=== PATIENT | male | born 1965 | race American Indian/Alaskan Native ===

== ENCOUNTER 2018-01-03 13:35 | Emergency (ER) | payer MEDICAID, OTHER ==
[~2018-01-03] VITALS: Ht 172.7 cm; Wt 95.0 kg
[~2018-01-03 13:35] MED LIST: AMLO2.5T2 PO; ASPI81TA35 PO; ATOR20TA PO; EXEN2VIA SQ; HYDR-569 PO; LANTUS SQ; METF500T7 PO; MYCO250C46 PO; NOVLG SQ; OMEP-84 PO; PRE5T PO; SULF500T59 PO; [UNRECOGNIZED DRUG - CODE] PO
[2018-01-03 13:42] VITALS: BP 147/93
== END 2018-01-03 14:13 | disposition home or self-care (01) ==
LOC: ER 13:36
DX: S80.12XA Contusion of left lower leg, initial encounter (principal); E78.00 Pure hypercholesterolemia, unspecified; E11.9 Type 2 diabetes mellitus without complications; Z94.0 Kidney transplant status; Z79.82 Long term (current) use of aspirin; Z79.4 Long term (current) use of insulin; Z79.899 Other long term (current) drug therapy; W22.8XXA Striking against or struck by other objects, initial encounter; Y93.39 Activity, other involving climbing, rappelling and jumping off; Y92.89 Other specified places as the place of occurrence of the external cause; Y99.9 Unspecified external cause status
CPT/HCPCS: 99281

== ENCOUNTER 2019-07-25 21:33 | Emergency (ER) | payer OTHER ==
[~2019-07-25] VITALS: Ht 172.7 cm; Wt 97.0 kg
[~2019-07-25 21:33] MED LIST changes: +HYDR-4383 PO; -HYDR-569 PO; +METF500T20 PO; -METF500T7 PO
[2019-07-25 22:30] LABS: BASOPHILS # (AUTO) 0.1 X10'3 (0-0.2); BASOPHILS % (AUTO) 1.1 % (0-1); EOSINOPHILS # (AUTO) 0.2 X10'3 (0-0.9); EOSINOPHILS % (AUTO) 1.9 % (0-6); HEMATOCRIT 44.8 % (42.0-52.0); HEMOGLOBIN 14.7 g/dl (14.0-17.9); LYMPHOCYTES % (AUTO) 10.1 % (21-51); MEAN CORPUSCULAR HEMOGLOBIN 29.2 PG (27.0-31.0); MEAN CORPUSCULAR HGB CONC 32.8 g/dL (33.0-36.5); MEAN CORPUSCULAR VOLUME 88.9 FL (78-98); MEAN PLATELET VOLUME 9.9 FL (7.4-10.4); MONOCYTES # (AUTO) 0.9 X10'3 (0-0.9); NEUTROPHILS # (AUTO) 7.4 X10'3 (1.8-7.7); NEUTROPHILS % (AUTO) 77.9 % (42-75); PLATELET COUNT 172 X10'3 (140-440); RED BLOOD COUNT 5.04 X10'6 (4.70-6.10); RED CELL DISTRIBUTION WIDTH 13.4 % (11.5-14.5); WHITE BLOOD COUNT 9.5 X10'3 (4.5-11.0)
[2019-07-25] MEDS ORDERED: ketorolac trometh inj. 60 MG/2 ML VIAL IM ONE (22:35)
[2019-07-25 22:45] LABS: ALANINE AMINOTRANSFERASE 16 U/L (12-78); ALBUMIN 3.5 G/DL (3.4-5.0); ALBUMIN/GLOBULIN RATIO 1.1 (1.1-1.5); ALKALINE PHOSPHATASE 124 IU/L (46-116); ANION GAP 10 (8-16); ASPARTATE AMINO TRANSFERASE 10 U/L (10-37); BILIRUBIN,TOTAL 0.3 MG/DL (0.1-1.0); BLOOD UREA NITROGEN 16 MG/DL (7-18); BUN/CREATININE RATIO 11.6 (5.4-32.0); CALCIUM 8.4 MG/DL (8.5-10.1); CHLORIDE 106 MMOL/L (99-107); CREATININE 1.38 MG/DL (0.60-1.10); GLUCOSE 123 MG/DL (70-104); POTASSIUM 3.8 MMOL/L (3.5-5.1); SODIUM 141 MMOL/L (135-145); TOTAL PROTEIN 6.6 G/DL (6.4-8.2); eGFR 54 ML/MIN
[2019-07-25] MEDS ORDERED: NAPR-56 PO (23:01)
[2019-07-25 23:09] VITALS: BP 86/53
== END 2019-07-25 23:12 | disposition home or self-care (01) ==
LOC: ER 21:34
DX: M70.41 Prepatellar bursitis, right knee (principal); E78.00 Pure hypercholesterolemia, unspecified; E11.9 Type 2 diabetes mellitus without complications; Z94.0 Kidney transplant status; Z79.82 Long term (current) use of aspirin; Z79.4 Long term (current) use of insulin; Z79.84 Long term (current) use of oral hypoglycemic drugs; Z79.899 Other long term (current) drug therapy; Y93.89 Activity, other specified
CPT/HCPCS: 36415; 80053; 85025; 85651; 96372; 99283; J1885

== ENCOUNTER 2020-09-06 16:25 | Inpatient (IN) | payer OTHER ==
[~2020-09-06] VITALS: Ht 172.7 cm; Wt 100.0 kg
[~2020-09-06 16:25] MED LIST changes: +METF-900 PO; -METF500T20 PO
--- NOTE | 2020-09-06 16:37 | NUR ---
Patient to CT.
[2020-09-06 16:43] LABS: EOSINOPHILS # (AUTO) 0.2 X10'3 (0-0.9); MEAN CORPUSCULAR HEMOGLOBIN 29.7 PG (27.0-31.0)
[2020-09-06 16:44] LABS: BASOPHILS # (AUTO) 0.1 X10'3 (0-0.2); BASOPHILS % (AUTO) 1.3 % (0-1); HEMATOCRIT 50.9 % (42.0-52.0); HEMOGLOBIN 16.9 g/dl (14.0-17.9); LYMPHOCYTES # (AUTO) 1.3 X10'3 (1.1-4.8); LYMPHOCYTES % (AUTO) 17.2 % (21-51); MEAN CORPUSCULAR HGB CONC 33.3 g/dL (33.0-36.5); MEAN CORPUSCULAR VOLUME 89.3 FL (78-98); MEAN PLATELET VOLUME 9.6 FL (7.4-10.4); MONOCYTES # (AUTO) 0.8 X10'3 (0-0.9); MONOCYTES % (AUTO) 10.9 % (2-12); NEUTROPHILS # (AUTO) 5.1 X10'3 (1.8-7.7); NEUTROPHILS % (AUTO) 67.6 % (42-75); PLATELET COUNT 196 X10'3 (140-440); RED CELL DISTRIBUTION WIDTH 14.6 % (11.5-14.5); WHITE BLOOD COUNT 7.5 X10'3 (4.5-11.0)
[2020-09-06 16:55] LABS: PARTIAL THROMBOPLASTIN TIME 27 SECONDS (22-32)
[2020-09-06 16:57] LABS: ALANINE AMINOTRANSFERASE 18 U/L (12-78); ALBUMIN/GLOBULIN RATIO 1.2 (1.1-1.5); ALKALINE PHOSPHATASE 126 IU/L (46-116); ANION GAP 9 (8-16); ASPARTATE AMINO TRANSFERASE 14 U/L (10-37); BILIRUBIN,TOTAL 0.5 MG/DL (0.1-1.0); BLOOD UREA NITROGEN 13 MG/DL (7-18); BUN/CREATININE RATIO 8.7 (5.4-32.0); CALCIUM 9.4 MG/DL (8.5-10.1); CHLORIDE 103 MMOL/L (99-107); GLUCOSE 82 MG/DL (70-104); POTASSIUM 3.4 MMOL/L (3.5-5.1); SODIUM 140 MMOL/L (135-145); TOTAL PROTEIN 7.4 G/DL (6.4-8.2); eGFR 49 ML/MIN
[2020-09-06 17:00] LABS: TROPONIN I < 0.04 NG/ML (0.0-0.05)
[2020-09-06] MEDS ORDERED: labetalol injection 250 MG in normal saline 250ml IV soln 200 ML IV PRN (17:20)
[2020-09-06] MEDS ORDERED: normal saline 1000ML IV soln IVB ONE (17:20)
[2020-09-06 17:30] LABS: TOTAL CELLS COUNTED 100
[2020-09-06] MEDS ORDERED: NORMAL SALINE IV PRN (17:31)
[2020-09-06] MEDS ORDERED: LABETALOL IV PRN (17:31)
[2020-09-06 17:32] LABS: PLATELET ESTIMATE NORMAL
[2020-09-06 17:35] LABS: ELLIPTOCYTES FEW; LARGE PLATELETS FEW
[2020-09-06] MEDS ORDERED: dextrose 50%-water 50ml dispensing syringe IV ONE ×2 (17:45→19:31)
[2020-09-06] MEDS ORDERED: TEST200V10 IM (18:00)
[2020-09-06] MEDS ORDERED: INSU100V11 SQ (18:00)
[2020-09-06] MEDS ORDERED: TACR0.5C3 PO (18:00)
[2020-09-06] MEDS ORDERED: LOSA25TA41 PO (18:02)
[2020-09-06] MEDS ORDERED: FAMO40TA8 PO (18:02)
[2020-09-06] MEDS ORDERED: aspirin 81mg tab.chew PO ONE (18:10)
[2020-09-06] MEDS ORDERED: dextrose 50%-water 50ml dispensing syringe IV STA (19:29)
[2020-09-06] MEDS ORDERED: acetaminophen 325mg tablet PO PRN (20:05)
[2020-09-06] MEDS ORDERED: ondansetron/PF 4mg/2ml inj IV PRN (20:05)
[2020-09-06] MEDS ORDERED: nitroGLYCERIN 0.2mg/hour patch TD ONE (20:05)
[2020-09-06] MEDS ORDERED: potassium Cl 20 mEq SR tablet PO PRN (20:05)
[2020-09-06] MEDS ORDERED: mag hydrox/Alum hydrox/simeth 30ml oral suspension PO PRN (20:05)
[2020-09-06] MEDS ORDERED: potassium CL 10mEq/100ml bag 100 ML IV PRN ×2 (20:05)
[2020-09-06] MEDS ORDERED: magnesium hydroxide 30ml (MOM) UD suspension PO PRN (20:05)
[2020-09-06] MEDS ORDERED: famotidine 20mg tablet PO PRN (20:10)
--- NOTE | 2020-09-06 20:13 | NUR ---
JAYLA HAS INSULIN PUMP AND CALLING TO VERIFY UNITS/HR
--- NOTE | 2020-09-06 20:22 | NUR ---
BASAL INSULIN PUMP SET AT 41.8 EVERY 24 HOURS HUMALOG INSULIN
[2020-09-06 20:26] LABS: HEMOGLOBIN A1C 8.4 % (4.5-6.2)
[2020-09-06] MEDS ORDERED: losartan 25mg tablet PO SCH (21:00)
[2020-09-06] MEDS ORDERED: tacrolimus anhydrous 0.5mg capsule PO SCH (21:00)
[2020-09-06] MEDS: insulin pump.resvr SQ SCH (21:11)
--- NOTE | 2020-09-06 21:55 | NUR ---
Providing patient additional 2x orange juice with patient at 69 blood sugar per pump. 2 string cheese also at bedside. Will continue to monitor patient pump blood sugar reading.
[2020-09-06] MEDS: potassium Cl 20 mEq SR tablet PO PRN (22:32)
[2020-09-06 23:06] VITALS: BP 140/61
[2020-09-07] MEDS: potassium Cl 20 mEq SR tablet PO PRN (02:32)
[2020-09-07 03:00] VITALS: BP 114/66
[2020-09-07 06:00] VITALS: BP 128/84
[2020-09-07 06:01] LABS: BASOPHILS # (AUTO) 0.1 X10'3 (0-0.2); EOSINOPHILS # (AUTO) 0.2 X10'3 (0-0.9); EOSINOPHILS % (AUTO) 2.1 % (0-6); HEMATOCRIT 44.9 % (42.0-52.0); HEMOGLOBIN 14.7 g/dl (14.0-17.9); LYMPHOCYTES % (AUTO) 11.9 % (21-51); MEAN CORPUSCULAR HEMOGLOBIN 29.1 PG (27.0-31.0); MEAN CORPUSCULAR HGB CONC 32.8 g/dL (33.0-36.5); MEAN CORPUSCULAR VOLUME 88.8 FL (78-98); MEAN PLATELET VOLUME 10.1 FL (7.4-10.4); MONOCYTES # (AUTO) 0.9 X10'3 (0-0.9); MONOCYTES % (AUTO) 10.5 % (2-12); NEUTROPHILS # (AUTO) 6.1 X10'3 (1.8-7.7); NEUTROPHILS % (AUTO) 74.5 % (42-75); PLATELET COUNT 176 X10'3 (140-440); RED BLOOD COUNT 5.05 X10'6 (4.70-6.10); RED CELL DISTRIBUTION WIDTH 14.7 % (11.5-14.5); WHITE BLOOD COUNT 8.2 X10'3 (4.5-11.0)
[2020-09-07 06:10] LABS: ALANINE AMINOTRANSFERASE 16 U/L (12-78); ALBUMIN 3.2 G/DL (3.4-5.0); ALBUMIN/GLOBULIN RATIO 1.1 (1.1-1.5); ALKALINE PHOSPHATASE 87 IU/L (46-116); ANION GAP 8 (8-16); ASPARTATE AMINO TRANSFERASE 13 U/L (10-37); BILIRUBIN,TOTAL 0.5 MG/DL (0.1-1.0); BLOOD UREA NITROGEN 14 MG/DL (7-18); BUN/CREATININE RATIO 10.1 (5.4-32.0); CALCIUM 8.5 MG/DL (8.5-10.1); CHLORIDE 104 MMOL/L (99-107); CHOL/HDL RATIO 3.7 (0.00-4.99); CHOLESTEROL 118 MG/DL (0-200); CREATININE 1.38 MG/DL (0.60-1.10); GLUCOSE 130 MG/DL (70-104); HDL CHOLESTEROL 32 MG/DL (35-60); LDL CHOLESTEROL 76 MG/DL (50-100); POTASSIUM 3.5 MMOL/L (3.5-5.1); SODIUM 139 MMOL/L (135-145); TOTAL CARBON DIOXIDE 27.4 MMOL/L (24-32); TRIGLYCERIDES 90 MG/DL (20-135); eGFR 54 ML/MIN
--- NOTE | 2020-09-07 06:25 | NUR ---
Patient in room PCU 3017. I have received report from Julio and had the opportunity to ask questions and assume patient care.
--- NOTE | 2020-09-07 06:25 | NUR ---
Problems reprioritized. Patient report given, questions answered & plan of care reviewed with Tova SALEEM.
--- NOTE | 2020-09-07 06:53 | NUR ---
Patient in room PCU 3017B. I have received report from Julio and had the opportunity to ask questions and assume patient care.
[2020-09-07] MEDS ORDERED: insulin pump.resvr SQ SCH (07:00)
[2020-09-07] MEDS: insulin pump.resvr SQ SCH ×2 (07:00→12:52)
[2020-09-07] MEDS ORDERED: mycophenolate mofetil 250mg capsule PO SCH (08:00)
[2020-09-07] MEDS ORDERED: heparin, porcine 5000 units/ml vial SQ SCH (08:00)
[2020-09-07] MEDS ORDERED: predniSONE 5mg tablet PO SCH (08:00)
[2020-09-07] MEDS ORDERED: K and/or MAG REPLACEMENT MC SCH (08:00)
[2020-09-07] MEDS ORDERED: tacrolimus anhydrous 0.5mg capsule PO SCH (08:00)
[2020-09-07] MEDS ORDERED: aspirin 81mg tablet.DR PO SCH (08:00)
[2020-09-07] MEDS ORDERED: insulin Lispro (HumaLOG) vial - multi-dose SQ SCH (08:00)
[2020-09-07] MEDS ORDERED: dextrose 50%-water 50ml dispensing syringe IV PRN ×2 (09:55)
[2020-09-07] MEDS ORDERED: glucagon, human recombinant 1mg kit SUBCUT PRN (09:55)
[2020-09-07] MEDS ORDERED: dextrose ORAL solution 15 GM/59 ML bottle PO PRN ×2 (09:55)
[2020-09-07 11:00] VITALS: BP 113/76
[2020-09-07 15:00] VITALS: BP 156/89
--- NOTE | 2020-09-07 15:07 | NUR ---
DM consult, A1c 8.4%, per H&P hypoglycemia possibly r/t periods of fasting. RD internet e commerce specialist met patient at bedside and provided written DM education handout with verbal review, pt reports a good appetite, states has been eating 2 meals per day and snacks periodically, was seeing his PCP on a regular basis prior to COVID and now sees his PCP as able; reports he has an insulin pump and checks BG twice daily. Encouraged pt to speak with PCP regarding any questions r/t pump and insulin administration. Discussed MyPlate, types of carbs, pt has no questions or c/o at this time. Addendum: 09/07/20 at [address] Amended: Links added.
--- NOTE | 2020-09-07 15:41 | NUR ---
PAGER ID: [phone] MESSAGE: Tova Garcia on PCU, MRI results are back for Mr. Acevedo in [id number], just nely
--- NOTE | 2020-09-07 16:54 | NUR ---
Reviewed discharge instructions with pt. Pt verbalized understanding. Pt is alert, oriented and does not have any concerns at this time. Pt was able to dress himself and ambulated unassisted downstairs where he picked up his pocket knife from the security desk and proceeded to the front where his ride was waiting to take him home.
[2020-09-07] MEDS ORDERED: labetalol 20mg/4ml (5mg/ml) syringe IV SCH (22:00)
== END 2020-09-07 17:08 | disposition home or self-care (01) | DRG 69 ==
LOC: ER 16:25 → ED HOLD 20:05 → PCU 3S 21:00
PROVIDERS: ADMIT Internal Medicine; ATTEND Internal Medicine
DX: G45.9 Transient cerebral ischemic attack, unspecified (principal); N18.6 End stage renal disease; I12.0 Hypertensive chronic kidney disease with stage 5 chronic kidney disease or end stage renal disease; Z94.0 Kidney transplant status; E11.22 Type 2 diabetes mellitus with diabetic chronic kidney disease; E11.319 Type 2 diabetes mellitus with unspecified diabetic retinopathy without macular edema; Z96.41 Presence of insulin pump (external) (internal); E11.40 Type 2 diabetes mellitus with diabetic neuropathy, unspecified; E11.649 Type 2 diabetes mellitus with hypoglycemia without coma; E78.00 Pure hypercholesterolemia, unspecified; I16.0 Hypertensive urgency; Z79.4 Long term (current) use of insulin; Z83.3 Family history of diabetes mellitus; Z79.899 Other long term (current) drug therapy; Z79.82 Long term (current) use of aspirin
CPT/HCPCS: 36415; 70450; 70551; 71045; 80053; 80061; 82948; 83036; 84484; 85007; 85025; 85610; 85730; 87081; 93005; 93306; 93308; 93880; 96374; 99285; G0378; J1644; J3490; J7030; J7050; J7507; J7512; J7517

== ENCOUNTER 2024-04-15 18:51 | Emergency (ER) | payer OTHER ==
[~2024-04-15] VITALS: Ht 172.7 cm; Wt 98.6 kg
[~2024-04-15 18:51] MED LIST changes: -AMLO2.5T2 PO; +ASPI81TA52 PO; +CHOL2000 PO; -EXEN2VIA SQ; +FAMO40TA8 PO; +FLUC100T64 PO; -HYDR-4383 PO; +INSU100C10 SQ; +INSU100V11 SQ; -LANTUS SQ; +LOSA-415 PO; +LOSA25TA41 PO; -METF-900 PO; +METO10TA3 PO; -NOVLG SQ; -OMEP-84 PO; +OMEP40CA21 PO; +PRED5TAB PO; -SULF500T59 PO; +TACR0.5C3 PO; +TACR1CAP24 PO; +TEST200V33 IM; +VARD20TA31 PO
[2024-04-15 19:29] VITALS: TEMP 98.6
[2024-04-15 20:54] LABS: BASOPHILS # (AUTO) 0.1 X10'3 (0-0.2); BASOPHILS % (AUTO) 0.9 % (0-1); EOSINOPHILS # (AUTO) 0.2 X10'3 (0-0.9); EOSINOPHILS % (AUTO) 1.4 % (0-6); HEMATOCRIT 51.8 % (42.0-52.0); MEAN CORPUSCULAR HEMOGLOBIN 29.7 PG (27.0-31.0); MEAN CORPUSCULAR HGB CONC 32.7 g/dL (33.0-36.5); MEAN CORPUSCULAR VOLUME 90.7 FL (78-98); MEAN PLATELET VOLUME 10.6 FL (7.4-10.4); MONOCYTES # (AUTO) 0.9 X10'3 (0-0.9); MONOCYTES % (AUTO) 7.9 % (2-12); NEUTROPHILS # (AUTO) 9.3 X10'3 (1.8-7.7); NEUTROPHILS % (AUTO) 80.8 % (42-75); PLATELET COUNT 174 X10'3 (140-440); RED BLOOD COUNT 5.72 X10'6 (4.70-6.10); RED CELL DISTRIBUTION WIDTH 14.7 % (11.5-14.5); WHITE BLOOD COUNT 11.5 X10'3 (4.5-11.0)
[2024-04-15 21:02] LABS: ALANINE AMINOTRANSFERASE 21 U/L (12-78); ALBUMIN 4.1 G/DL (3.4-5.0); ALBUMIN/GLOBULIN RATIO 1.1 (1.1-1.5); ALKALINE PHOSPHATASE 96 IU/L (46-116); ANION GAP 8 (8-16); ASPARTATE AMINO TRANSFERASE 17 U/L (10-37); BILIRUBIN,TOTAL 0.8 MG/DL (0.1-1.0); BLOOD UREA NITROGEN 12 MG/DL (7-18); BUN/CREATININE RATIO 8.2 (10.0-20.0); CALCIUM 9.4 MG/DL (8.5-10.1); CHLORIDE 102 MMOL/L (99-107); CREATININE 1.46 MG/DL (0.60-1.10); GLUCOSE 63 MG/DL (70-104); POTASSIUM 4.1 MMOL/L (3.5-5.1); SODIUM 137 MMOL/L (135-145); TOTAL CARBON DIOXIDE 27.2 MMOL/L (24-32); TOTAL PROTEIN 7.8 G/DL (6.4-8.2); eCRCL 54 ML/MIN; eGFR 50 ML/MIN
[2024-04-15] MEDS: meclizine 12.5mg tablet PO ONE (21:06)
[2024-04-15] MEDS: ondansetron/PF 4mg/2ml inj IV ONE (21:06)
[2024-04-15] MEDS: normal saline 1000ML IV soln IVB ONE ×2 (21:07→22:25)
[2024-04-15] MEDS: LORazepam 1 MG tablet PO ONE (23:19)
[2024-04-15 23:29] LABS: BILIRUBIN,URINE NEGATIVE (Neg); CLARITY,URINE CLEAR (Clear); COLOR,URINE YELLOW (Yellow); GLUCOSE, URINE 250 mg/dl (Neg); KETONES,URINE NEGATIVE (Neg); LEUKOCYTE ESTERASE ,URINE NEGATIVE (Neg); NITRITES, URINE NEGATIVE (Neg); OCCULT BLOOD,URINE NEGATIVE (Neg); PROTEIN,URINE TRACE mg/dl (Neg); UROBILINOGEN,URINE 0.2 E.U/dL (0.2-1.0)
[2024-04-15 23:42] LABS: UA COLLECTION TYPE CLN CATCH MIDSTREAM
[2024-04-15 23:49] LABS: BACTERIA,URINE NONE SEEN /HPF (Neg); MUCUS STRANDS MODERATE /LPF (Neg); RBC,URINE 0-2 /HPF (0-2); SQUAMOUS EPITHELIAL CELL,UR FEW /LPF (FEW); WBC,URINE 0-4 /HPF (0-4)
[2024-04-16] MEDS ORDERED: MECL-302 PO (01:42)
[2024-04-16 02:04] VITALS: BP 138/93; PULSE 68; RESP 16; O2SAT 96
== END 2024-04-16 02:06 | disposition home or self-care (01) ==
LOC: ER 18:52
DX: R42 Dizziness and giddiness (principal); E78.00 Pure hypercholesterolemia, unspecified; I10 Essential (primary) hypertension; E11.9 Type 2 diabetes mellitus without complications; Z79.82 Long term (current) use of aspirin; Z79.899 Other long term (current) drug therapy; Z79.84 Long term (current) use of oral hypoglycemic drugs
CPT/HCPCS: 36415; 80053; 81001; 85025; 93005; 96361; 96374; 99285; J2405; J7030; J7040; J8597

== ENCOUNTER 2024-08-21 18:10 | Emergency (ER) | payer OTHER ==
[~2024-08-21] VITALS: Ht 172.7 cm; Wt 93.3 kg
[~2024-08-21 18:10] MED LIST changes: +MECL-302 PO
[2024-08-21 19:08] VITALS: TEMP 99.2
[2024-08-21 19:15] LABS: BASOPHILS # (AUTO) 0.1 X10'3 (0-0.2); EOSINOPHILS # (AUTO) 0.2 X10'3 (0-0.9); EOSINOPHILS % (AUTO) 2.3 % (0-6); HEMATOCRIT 48.2 % (42.0-52.0); HEMOGLOBIN 16.1 g/dl (14.0-17.9); LYMPHOCYTES # (AUTO) 0.9 X10'3 (1.1-4.8); LYMPHOCYTES % (AUTO) 12.3 % (21-51); MEAN CORPUSCULAR HEMOGLOBIN 30.5 PG (27.0-31.0); MEAN CORPUSCULAR HGB CONC 33.4 g/dL (33.0-36.5); MEAN CORPUSCULAR VOLUME 91.3 FL (78-98); MEAN PLATELET VOLUME 10.6 FL (7.4-10.4); MONOCYTES # (AUTO) 0.4 X10'3 (0-0.9); MONOCYTES % (AUTO) 5.6 % (2-12); NEUTROPHILS # (AUTO) 5.9 X10'3 (1.8-7.7); NEUTROPHILS % (AUTO) 77.8 % (42-75); PLATELET COUNT 169 X10'3 (140-440); RED BLOOD COUNT 5.27 X10'6 (4.70-6.10); RED CELL DISTRIBUTION WIDTH 14.4 % (11.5-14.5); WHITE BLOOD COUNT 7.6 X10'3 (4.5-11.0)
[2024-08-21] MEDS: normal saline 1000ml 1,000 ML IV ONE (19:43)
[2024-08-21] MEDS: diphenhydrAMINE 50 mg/ml inj IV ONE (19:43)
[2024-08-21] MEDS: metoclopramide 5 mg/ml inj IV ONE (19:43)
[2024-08-21 20:54] LABS: LARGE PLATELETS FEW; PLATELET ESTIMATE NORMAL
[2024-08-21 21:44] LABS: ALANINE AMINOTRANSFERASE 20 U/L (12-78); ALBUMIN 3.4 G/DL (3.4-5.0); ALBUMIN/GLOBULIN RATIO 1.1 (1.1-1.5); ALKALINE PHOSPHATASE 94 IU/L (46-116); ANION GAP 4 (8-16); ASPARTATE AMINO TRANSFERASE 15 U/L (10-37); BILIRUBIN,TOTAL 0.5 MG/DL (0.1-1.0); BLOOD UREA NITROGEN 24 MG/DL (7-18); BUN/CREATININE RATIO 16.4 (10.0-20.0); CALCIUM 8.1 MG/DL (8.5-10.1); CHLORIDE 107 MMOL/L (99-107); CREATININE 1.46 MG/DL (0.60-1.10); GLUCOSE 128 MG/DL (70-104); PRO BRAIN NATRIURETIC PEPTIDE 154 PG/ML (0-125); SODIUM 136 MMOL/L (135-145); TOTAL CARBON DIOXIDE 25.1 MMOL/L (24-32); TOTAL PROTEIN 6.6 G/DL (6.4-8.2); eCRCL 53 ML/MIN; eGFR 50 ML/MIN
[2024-08-21 22:26] VITALS: BP 157/89; PULSE 84; RESP 23; O2SAT 98
== END 2024-08-21 22:28 | disposition home or self-care (01) ==
LOC: ER 18:10
DX: R51.9 Headache, unspecified (principal); R11.0 Nausea; E78.00 Pure hypercholesterolemia, unspecified; I10 Essential (primary) hypertension; E11.9 Type 2 diabetes mellitus without complications; Z79.899 Other long term (current) drug therapy; Z79.82 Long term (current) use of aspirin; Z79.4 Long term (current) use of insulin; Z94.0 Kidney transplant status
CPT/HCPCS: 36415; 71045; 80053; 83880; 84484; 85008; 85025; 93005; 96361; 96374; 96375; 99285; J1200; J2765; J7030

== ENCOUNTER 2024-08-22 15:20 | Emergency (ER) | payer OTHER ==
[~2024-08-22] VITALS: Ht 172.7 cm; Wt 92.7 kg
[2024-08-22] MEDS ORDERED: iohexol 350MG/ML 100ml bottle IV ONE (15:32)
[2024-08-22 15:40] LABS: BASOPHILS # (AUTO) 0.1 X10'3 (0-0.2); BASOPHILS % (AUTO) 0.7 % (0-1); EOSINOPHILS % (AUTO) 0.3 % (0-6); HEMATOCRIT 48.6 % (42.0-52.0); LYMPHOCYTES # (AUTO) 0.9 X10'3 (1.1-4.8); LYMPHOCYTES % (AUTO) 9.5 % (21-51); MEAN CORPUSCULAR HEMOGLOBIN 30.1 PG (27.0-31.0); MEAN CORPUSCULAR HGB CONC 32.9 g/dL (33.0-36.5); MEAN CORPUSCULAR VOLUME 91.4 FL (78-98); MONOCYTES # (AUTO) 0.5 X10'3 (0-0.9); MONOCYTES % (AUTO) 5.3 % (2-12); NEUTROPHILS # (AUTO) 8.3 X10'3 (1.8-7.7); NEUTROPHILS % (AUTO) 84.2 % (42-75); PLATELET COUNT 168 X10'3 (140-440); RED BLOOD COUNT 5.32 X10'6 (4.70-6.10); RED CELL DISTRIBUTION WIDTH 14.3 % (11.5-14.5); WHITE BLOOD COUNT 9.9 X10'3 (4.5-11.0)
[2024-08-22 15:52] LABS: ALBUMIN 3.8 G/DL (3.4-5.0); ANION GAP 9 (8-16); BLOOD UREA NITROGEN 20 MG/DL (7-18); BUN/CREATININE RATIO 15.2 (10.0-20.0); CALCIUM 8.6 MG/DL (8.5-10.1); CHLORIDE 102 MMOL/L (99-107); CREATININE 1.32 MG/DL (0.60-1.10); GLUCOSE 182 MG/DL (70-104); POTASSIUM 4.4 MMOL/L (3.5-5.1); SODIUM 134 MMOL/L (135-145); TOTAL CARBON DIOXIDE 22.7 MMOL/L (24-32); eCRCL 59 ML/MIN; eGFR 56 ML/MIN
[2024-08-22] MEDS: normal saline 1000ml 1,000 ML IV ONE (15:55)
[2024-08-22 15:56] LABS: APTT 24 SECONDS (22-32); ETHANOL < 10 MG/DL (<10); INR 1.1 INR
[2024-08-22] MEDS: aspirin 325mg tablet PO ONE (17:14)
[2024-08-22] MEDS: clopidogrel 300mg tablet PO ONE (17:14)
[2024-08-22 18:25] LABS: URINE AMPHETAMINE SCREEN NEGATIVE (Neg); URINE BARBITUATE SCREEN NEGATIVE (Neg); URINE BENZODIAZEPINES SCREEN NEGATIVE (Neg); URINE CANNABINOID SCREEN NEGATIVE (Neg); URINE COCAINE SCREEN NEGATIVE (Neg); URINE METHADONE SCREEN NEGATIVE (Neg); URINE OPIATE SCREEN NEGATIVE (Neg); URINE PHENCYCLIDINE SCREEN NEGATIVE (Neg)
[2024-08-22 19:44] VITALS: BP 150/93; PULSE 81; RESP 14; TEMP 98; O2SAT 97
== END 2024-08-22 19:50 | disposition short-term general hospital (02) ==
LOC: ER 15:20
DX: I65.01 Occlusion and stenosis of right vertebral artery (principal); R29.810 Facial weakness; G93.89 Other specified disorders of brain; E78.00 Pure hypercholesterolemia, unspecified; I10 Essential (primary) hypertension; E11.9 Type 2 diabetes mellitus without complications; Z79.82 Long term (current) use of aspirin; Z79.899 Other long term (current) drug therapy; Z79.4 Long term (current) use of insulin; Z94.0 Kidney transplant status
CPT/HCPCS: 36415; 70450; 70496; 70498; 71045; 80048; 80305; 80320; 84484; 85025; 85610; 85730; 93005; 96360; 96361; 99291; 99292; J7030; Q9967